=== PATIENT | female | born 1995 | race African-American/Black ===

== ENCOUNTER 2018-08-01 01:34 | Emergency (ER) | payer MEDICAID ==
[~2018-08-01] VITALS: Ht 157.5 cm; Wt 56.1 kg
--- NOTE | 2018-08-01 02:42 | NUR ---
urine sample taken to lab
--- NOTE | 2018-08-01 02:51 | NUR ---
PT STATES THAT SHE IS HAVING LUQ ABDOMINAL PAIN SINCE THIS MORNING. PT STATES THAT SHE HAS HAD A COUGH FOR 2 WEEKS AND IT HURTS MORE WHEN SHE COUGHS. provided pt with gown, monitors applied, siderails up x2, call light within reach
[2018-08-01 02:55] LABS: HCG UR SG 1.026 (1.003-1.030); MICROSCOPIC NOT IND
[2018-08-01 02:58] LABS: CULTURE INDICATED? NO
[2018-08-01] MEDS ORDERED: ACETAMINOPHEN 500 MG TABLET ONE (03:12)
--- NOTE | 2018-08-01 03:15 | NUR ---
pt medicated per mar
[2018-08-01] MEDS ORDERED: ACETAMINOPHEN 500 MG TABLET PO ONE (03:30)
[2018-08-01 04:16] VITALS: BP 109/51
--- NOTE | 2018-08-01 04:16 | NUR ---
pt resting on gurney watching tv, denies needs, siderails up x2, call light within reach. chart up for recheck
== END 2018-08-01 04:52 | disposition home or self-care (01) ==
LOC: ED 02:53
DX: R07.89 Other chest pain (principal); R05 Cough
CPT/HCPCS: 71046; 81003; 81025; 99284

== ENCOUNTER 2018-10-10 11:21 | Emergency (ER) | payer MEDICAID ==
[~2018-10-10] VITALS: Ht 157.5 cm; Wt 53.2 kg
[2018-10-10 11:52] VITALS: BP 105/62
--- NOTE | 2018-10-10 12:05 | NUR ---
TO ROOM FROM LOBBY. NAD.
--- NOTE | 2018-10-10 12:13 | NUR ---
PT HERE FOR LOWER LEFT ROIB PAIN THAT STARTED AFTER LIFITNG SOMETHING HEAVY. PT DENIES TRUAMA. PT REPORTS NO RELIEF AND TAKING NSAIDS. PT HAS NO BRUISING OR DEFORMITY TO SITE. PT ABLE TO TAKE DEEP BREEATHS AND DOES NOT FEEL SOB. PT RESTING IN BED. PT XRAY COMPLETED. AWAITING FURTHER ORDERS. CAll light in reach.
[2018-10-10] MEDS ORDERED: KETOROLAC 30 MG/1 ML ONE (12:16)
--- NOTE | 2018-10-10 12:23 | NUR ---
PT MEDICATED PER EMAR.
--- NOTE | 2018-10-10 12:52 | NUR ---
Patient/Caregiver given discharge instructions and they have confirmed that they understand the instructions. Patient ambulatory with steady gait.
[2018-10-10] MEDS ORDERED: KETOROLAC 30 MG/1 ML IM ONE (13:00)
== END 2018-10-10 12:56 | disposition home or self-care (01) ==
LOC: ED 12:25
DX: M94.0 Chondrocostal junction syndrome [Tietze] (principal); R07.89 Other chest pain
CPT/HCPCS: 71046; 96372; 99283; J1885